=== PATIENT | female | born 1950 | race Hispanic/Latino ===

== ENCOUNTER 2023-03-27 21:36 | Inpatient (IN) | payer OTHER ==
[~2023-03-27 21:36] MED LIST: Iopamidol-370 76% 500 ML MDV (1 ML CHARGE) ONE
[2023-03-27 22:37] LABS: #Monocytes 0.6 thou/uL (0.11-0.59); #Neutrophils 8.8 thou/uL (1.40-6.50); %Basophils 0.2 % (0.0-1.0); %Eosinophils 0.1 % (0.0-10.0); %Lymphocytes 18.6 % (21.0-51.0); %Monocytes 5.4 % (0.0-10.0); %Neutrophils 75.5 % (42.0-75.0); Hematocrit 39.5 % (36.0-47.0); Hemoglobin 13.4 g/dL (12.0-16.0); Mean Corpuscular HGB CONC 33.9 g/dL (32.0-36.0); Mean Corpuscular Hemoglobin 32.1 pg (27.0-31.0); Mean Corpuscular Volume 94.5 fl (78.0-98.0); Mean Platelet Volume 10.3 fL (7.4-10.4); Platelet Count 264 10x3/uL (130-400); RBC Distribution Width 12.5 % (11.5-14.5); Red Blood Cell (RBC) Count 4.18 mill/uL (4.20-5.40); White Blood Cell (WBC) Count 11.7 10x3/uL (4.8-10.8)
[2023-03-27 22:41] LABS: INR-International Normal Ratio 0.9; PTT 25.1 sec (22.9-36.1)
[2023-03-27 22:48] LABS: Bacteria/HPF None Seen HPF (None Seen); Bilirubin Negative (Negative); Blood, Urine Negative (Negative); CAUTI Indications for Culture Alt mental st,lethar; Clarity Clear (Clear); Glucose, Urine (Dipstick) Normal (Negative); Ketone, Urine Negative (Negative); Leukocyte Negative Leu/uL (Negative); Nitrite Negative (Negative); Protein, Urine (Dipstick) Negative (Neg-Trace); RBC/HPF 0-3 HPF (0-3); Squamous Epithelial None Seen HPF (0-3); Urobilinogen Normal mg/dL (Less than 2); WBC/HPF 0-3 HPF (0-3)
[2023-03-27 22:51] LABS: Urine Culture Reflex No No
[2023-03-27 22:53] LABS: ALT (SGPT) 32 U/L (8-55); AST (SGOT) 60 U/L (5-34); Albumin 3.8 g/dL (3.4-4.8); Alkaline Phosphatase 79 U/L (40-110); Anion Gap 17 mmol/L (10-20); BUN (Urea Nitrogen) 33 mg/dL (9.8-20.1); Bilirubin, Total 0.2 mg/dL (0.2-1.2); CK (CPK) 2658 U/L (29-168); Calc. Creatinine Clearance 0 mL/min (70-130); Calcium 9.4 mg/dL (7.8-10.44); Carbon Dioxide 19 mmol/L (23-31); Chloride 98 mmol/L (98-107); Estimated GFR 80; Globulin 2.9 g/dL (2.4-3.5); Glucose 159 mg/dL (83-110); Potassium 3.1 mmol/L (3.5-5.1); Protein, Total 6.7 g/dL (5.8-8.1); Sodium 131 mmol/L (136-145)
[2023-03-27 22:55] LABS: Troponin I 0.013 ng/mL (< 0.028)
[2023-03-27 22:56] LABS: Amphetamine Not Detected (NotDetected); Barbiturates Screen Not Detected (NotDetected); Benzodiazepine Screen Detected (NotDetected); Cocaine Metabolite Screen Not Detected (NotDetected); Methadone Not Detected (NotDetected); Methamphetamine Not Detected (NotDetected); Opiate Screen Not Detected (NotDetected); Oxycodone Screen Not Detected (NotDetected); Phencyclidine (PCP) Not Detected (NotDetected); THC/Cannabinoid Screen Not Detected (NotDetected); Tricyclic Screen Not Detected (NotDetected)
[2023-03-27] MEDS ORDERED: Dextrose 5% in Water 1,000 ML IV PRN (23:28)
[2023-03-27] MEDS ORDERED: Ondansetron ODT 4 MG TAB PO PRN (23:28)
[2023-03-27] MEDS ORDERED: HumaLOG 300 UNITS/3 ML VIAL SC PRN ×2 (23:28)
[2023-03-27] MEDS ORDERED: hydrALAZINE 20 MG/ML VIAL SLOW IVP PRN (23:28)
[2023-03-27] MEDS ORDERED: Glucagon 1 MG/ML KIT IM PRN (23:28)
[2023-03-27] MEDS ORDERED: Acetaminophen 325 MG TAB PO PRN (23:28)
[2023-03-27] MEDS ORDERED: Dextrose 50% Abboject 50 ML SYRINGE SLOW IVP PRN (23:28)
[2023-03-27] MEDS ORDERED: Ondansetron PF 4 MG/2 ML Vial IVP PRN (23:28)
[2023-03-27] MEDS ORDERED: Acetaminophen 650 MG Suppository PR PRN (23:28)
[2023-03-28 02:44] VITALS: BMI 21.7
[2023-03-28 04:41] LABS: #Monocytes 0.9 thou/uL (0.11-0.59); #Neutrophils 10.8 thou/uL (1.40-6.50); %Basophils 0.2 % (0.0-1.0); %Eosinophils 0.1 % (0.0-10.0); %Monocytes 5.8 % (0.0-10.0); %Neutrophils 70.6 % (42.0-75.0); Hematocrit 38.8 % (36.0-47.0); Hemoglobin 13.1 g/dL (12.0-16.0); Mean Corpuscular HGB CONC 33.8 g/dL (32.0-36.0); Mean Corpuscular Hemoglobin 31.7 pg (27.0-31.0); Mean Corpuscular Volume 93.9 fl (78.0-98.0); Mean Platelet Volume 10.2 fL (7.4-10.4); Platelet Count 274 10x3/uL (130-400); RBC Distribution Width 12.5 % (11.5-14.5); Red Blood Cell (RBC) Count 4.13 mill/uL (4.20-5.40); White Blood Cell (WBC) Count 15.2 10x3/uL (4.8-10.8)
[2023-03-28 04:57] LABS: Hemoglobin A1c 5.1 % (4.0-6.0)
[2023-03-28 05:13] LABS: Anion Gap 13 mmol/L (10-20); BUN (Urea Nitrogen) 22 mg/dL (9.8-20.1); Calc. Creatinine Clearance 62 mL/min (70-130); Calcium 9.1 mg/dL (7.8-10.44); Carbon Dioxide 23 mmol/L (23-31); Cardiac Risk 2.3 (Less than 4.5); Chloride 98 mmol/L (98-107); Cholesterol 149 mg/dl (< 200 Desired); Estimated GFR 92; Glucose 108 mg/dL (83-110); HDL Cholesterol 65 mg/dL (>60 Neg Risk); LDL Cholesterol, Calculated 70 mg/dL; Potassium 3.3 mmol/L (3.5-5.1); Sodium 131 mmol/L (136-145); Triglycerides 68 mg/dL (Less than 150)
[2023-03-28] MEDS ORDERED: Electrolyte Replacement Protocol 1 EACH FS SCH (07:00)
[2023-03-28] MEDS ORDERED: Potassium Chloride 20 MEQ TAB PO SCH (08:00)
[2023-03-28 08:07] LABS: Magnesium 1.7 mg/dL (1.6-2.6)
[2023-03-28] MEDS: Aspirin 81 mg Enteric Coated Tablet PO SCH (08:26)
[2023-03-28] MEDS: Sodium Chloride 0.9% 1,000 ML IV SCH ×2 (08:26→17:46)
[2023-03-28] MEDS ORDERED: Magnesium 2 GM/50 ML(in water) 2 GM in Premix Bag 1 BAG IVPB SCH (09:00)
[2023-03-28] MEDS ORDERED: Lorazepam 2 MG/ML VIAL ONE (13:58)
[2023-03-28 14:39] LABS: PTT 29.3 sec (22.9-36.1); Prothrombin Time 13.6 sec (12.0-14.7)
[2023-03-28 14:50] LABS: #Monocytes 0.8 thou/uL (0.11-0.59); #Neutrophils 7.7 thou/uL (1.40-6.50); %Basophils 0.3 % (0.0-1.0); %Eosinophils 0.2 % (0.0-10.0); %Lymphocytes 27.4 % (21.0-51.0); %Monocytes 6.8 % (0.0-10.0); Hematocrit 35.7 % (36.0-47.0); Hemoglobin 12.2 g/dL (12.0-16.0); Mean Corpuscular HGB CONC 34.2 g/dL (32.0-36.0); Mean Corpuscular Hemoglobin 32.1 pg (27.0-31.0); Mean Corpuscular Volume 93.9 fl (78.0-98.0); Mean Platelet Volume 10.3 fL (7.4-10.4); Platelet Count 270 10x3/uL (130-400); RBC Distribution Width 12.6 % (11.5-14.5); White Blood Cell (WBC) Count 11.8 10x3/uL (4.8-10.8)
[2023-03-28 14:51] LABS: Anion Gap 24 mmol/L (10-20); BUN (Urea Nitrogen) 14 mg/dL (9.8-20.1); Calc. Creatinine Clearance 61 mL/min (70-130); Calcium 8.2 mg/dL (7.8-10.44); Carbon Dioxide 11 mmol/L (23-31); Chloride 101 mmol/L (98-107); Estimated GFR 91; Glucose 121 mg/dL (83-110); Potassium 3.8 mmol/L (3.5-5.1); Sodium 132 mmol/L (136-145)
[2023-03-28] MEDS: levETIRAcetam 500 MG/5 ML VIAL SLOW IVP SCH (20:07)
[2023-03-28] MEDS ORDERED: levETIRAcetam 500 MG TAB PO SCH (21:00)
[2023-03-29] MEDS: Sodium Chloride 0.9% 1,000 ML IV SCH ×2 (02:00→09:54)
[2023-03-29] MEDS: levETIRAcetam 500 MG/5 ML VIAL SLOW IVP SCH (08:25)
[2023-03-29] MEDS: Aspirin 81 mg Enteric Coated Tablet PO SCH ×2 (08:25→09:22)
[2023-03-29] MEDS ORDERED: DULoxetine 30 MG CAP PO SCH (12:56)
[2023-03-29] MEDS: levETIRAcetam 500 MG TAB PO SCH (20:46)
[2023-03-29] MEDS: ALPRAZolam 0.5 MG TAB PO SCH (20:46)
[2023-03-30 04:56] LABS: #Monocytes 0.9 thou/uL (0.11-0.59); #Neutrophils 8.1 thou/uL (1.40-6.50); %Basophils 0.2 % (0.0-1.0); %Eosinophils 0.2 % (0.0-10.0); %Lymphocytes 26.9 % (21.0-51.0); %Monocytes 7.6 % (0.0-10.0); %Neutrophils 64.8 % (42.0-75.0); Hematocrit 37.7 % (36.0-47.0); Hemoglobin 13.2 g/dL (12.0-16.0); Mean Corpuscular Hemoglobin 32.4 pg (27.0-31.0); Mean Corpuscular Volume 92.6 fl (78.0-98.0); Platelet Count 289 10x3/uL (130-400); RBC Distribution Width 12.1 % (11.5-14.5); Red Blood Cell (RBC) Count 4.07 mill/uL (4.20-5.40); White Blood Cell (WBC) Count 12.4 10x3/uL (4.8-10.8)
[2023-03-30 05:19] LABS: Anion Gap 12 mmol/L (10-20); BUN (Urea Nitrogen) 9 mg/dL (9.8-20.1); CK (CPK) 3909 U/L (29-168); Calc. Creatinine Clearance 72 mL/min (70-130); Calcium 8.9 mg/dL (7.8-10.44); Carbon Dioxide 23 mmol/L (23-31); Chloride 101 mmol/L (98-107); Estimated GFR 95; Glucose 108 mg/dL (83-110); Potassium 3.4 mmol/L (3.5-5.1); Sodium 133 mmol/L (136-145)
[2023-03-30] MEDS ORDERED: Potassium Chloride 20 MEQ TAB PO SCH (08:00)
[2023-03-30] MEDS ORDERED: Ziprasidone 20 MG CAP PO SCH (08:42)
[2023-03-30] MEDS ORDERED: Ziprasidone 20 MG VIAL IM SCH ×2 (09:30→13:30)
[2023-03-30] MEDS ORDERED: Sterile Water 10 ML ONE ×2 (09:33→13:41)
[2023-03-30] MEDS: Sodium Chloride 0.9% 1,000 ML IV SCH ×2 (10:56→17:55)
[2023-03-30] MEDS: Aspirin 81 mg Enteric Coated Tablet PO SCH (10:57)
[2023-03-30] MEDS: ALPRAZolam 0.5 MG TAB PO SCH ×2 (10:57→20:09)
[2023-03-30] MEDS: DULoxetine 30 MG CAP PO SCH (10:58)
[2023-03-30] MEDS: levETIRAcetam 500 MG TAB PO SCH (11:10)
[2023-03-30] MEDS: Divalproex Sodium 250 MG ER.TAB PO SCH (14:28)
[2023-03-30] MEDS ORDERED: traZODone HCl 50 MG TAB PO PRN (16:06)
[2023-03-30] MEDS ORDERED: levETIRAcetam 500 MG/5 ML VIAL SLOW IVP SCH (21:00)
[2023-03-30] MEDS ORDERED: levETIRAcetam 500 MG TAB PO SCH (21:00)
[2023-03-30] MEDS ORDERED: Haloperidol Lactate 5 MG/ML VIAL IM SCH (21:30)
[2023-03-30] MEDS ORDERED: QUEtiapine 25 MG TAB PO SCH (23:00)
[2023-03-31] MEDS ORDERED: Lorazepam 2 MG/ML VIAL ONE (03:55)
[2023-03-31] MEDS ORDERED: levETIRAcetam 500 MG/5 ML VIAL SLOW IVP SCH (04:15)
[2023-03-31 04:19] LABS: #Eosinphils 0.1 thou/uL (0.0-0.7); #Monocytes 1.3 thou/uL (0.11-0.59); #Neutrophils 9.1 thou/uL (1.40-6.50); %Basophils 0.2 % (0.0-1.0); %Eosinophils 0.3 % (0.0-10.0); %Lymphocytes 33.8 % (21.0-51.0); %Neutrophils 57.2 % (42.0-75.0); Hematocrit 39.9 % (36.0-47.0); Hemoglobin 13.5 g/dL (12.0-16.0); Mean Corpuscular HGB CONC 33.8 g/dL (32.0-36.0); Mean Corpuscular Hemoglobin 31.9 pg (27.0-31.0); Mean Corpuscular Volume 94.3 fl (78.0-98.0); Mean Platelet Volume 10.5 fL (7.4-10.4); Platelet Count 334 10x3/uL (130-400); RBC Distribution Width 12.3 % (11.5-14.5); Red Blood Cell (RBC) Count 4.23 mill/uL (4.20-5.40); White Blood Cell (WBC) Count 15.9 10x3/uL (4.8-10.8)
[2023-03-31] MEDS: Sodium Chloride 0.9% 1,000 ML IV SCH ×2 (04:26→14:21)
[2023-03-31 08:28] LABS: Anion Gap 25 mmol/L (10-20); BUN (Urea Nitrogen) 11 mg/dL (9.8-20.1); CK (CPK) 2612 U/L (29-168); Calc. Creatinine Clearance 57 mL/min (70-130); Calcium 9.3 mg/dL (7.8-10.44); Carbon Dioxide 16 mmol/L (23-31); Chloride 101 mmol/L (98-107); Estimated GFR 85; Glucose 176 mg/dL (83-110); Potassium 3.3 mmol/L (3.5-5.1); Sodium 139 mmol/L (136-145)
[2023-03-31] MEDS ORDERED: Potassium Chloride 20 MEQ TAB PO SCH (09:00)
[2023-03-31] MEDS: Aspirin 81 mg Enteric Coated Tablet PO SCH (09:04)
[2023-03-31] MEDS: DULoxetine 30 MG CAP PO SCH (09:04)
[2023-03-31] MEDS: Divalproex Sodium 250 MG ER.TAB PO SCH ×2 (09:04→20:30)
[2023-03-31] MEDS: levETIRAcetam 500 MG/5 ML VIAL SLOW IVP SCH ×2 (09:04→20:06)
[2023-03-31] MEDS: ALPRAZolam 0.5 MG TAB PO SCH ×2 (09:08→20:30)
[2023-03-31] MEDS: Lorazepam 2 MG/ML VIAL SLOW IVP PRN (20:08)
[2023-03-31] MEDS: QUEtiapine 25 MG TAB PO SCH (20:30)
[2023-04-01] MEDS: Sodium Chloride 0.9% 1,000 ML IV SCH ×3 (06:05→18:22)
[2023-04-01] MEDS: levETIRAcetam 500 MG/5 ML VIAL SLOW IVP SCH (08:01)
[2023-04-01] MEDS: Lorazepam 2 MG/ML VIAL SLOW IVP PRN ×2 (08:31→21:01)
[2023-04-01] MEDS ORDERED: Lorazepam 2 MG/ML VIAL SLOW IVP SCH (10:45)
[2023-04-01] MEDS ORDERED: Valproate Sodium 1,000 MG in Sodium Chloride 0.9% 100 ML IVPB SCH (11:00)
[2023-04-01] MEDS: ALPRAZolam 0.5 MG TAB PO SCH ×2 (11:10→21:21)
[2023-04-01] MEDS: Divalproex Sodium 250 MG ER.TAB PO SCH (11:11)
[2023-04-01] MEDS: DULoxetine 30 MG CAP PO SCH (11:11)
[2023-04-01] MEDS: Aspirin 81 mg Enteric Coated Tablet PO SCH (11:11)
[2023-04-01] MEDS: Valproate Sodium 750 MG in Sodium Chloride 0.9% 100 ML IVPB SCH (21:01)
[2023-04-01] MEDS: QUEtiapine 25 MG TAB PO SCH (21:21)
[2023-04-02] MEDS ORDERED: Labetalol HCl 100 MG/20 ML VIAL SLOW IVP SCH (04:45)
[2023-04-02] MEDS: Sodium Chloride 0.9% 1,000 ML IV SCH ×2 (04:51→19:20)
[2023-04-02 05:14] LABS: #Eosinphils 0.1 thou/uL (0.0-0.7); #Monocytes 0.6 thou/uL (0.11-0.59); #Neutrophils 5.5 thou/uL (1.40-6.50); %Basophils 0.4 % (0.0-1.0); %Eosinophils 0.6 % (0.0-10.0); %Lymphocytes 37.9 % (21.0-51.0); %Monocytes 6.2 % (0.0-10.0); %Neutrophils 54.5 % (42.0-75.0); Hematocrit 36.3 % (36.0-47.0); Hemoglobin 12.4 g/dL (12.0-16.0); Mean Corpuscular HGB CONC 34.2 g/dL (32.0-36.0); Mean Corpuscular Hemoglobin 31.3 pg (27.0-31.0); Mean Corpuscular Volume 91.7 fl (78.0-98.0); Mean Platelet Volume 10.2 fL (7.4-10.4); Platelet Count 313 10x3/uL (130-400); RBC Distribution Width 12.5 % (11.5-14.5); Red Blood Cell (RBC) Count 3.96 mill/uL (4.20-5.40); White Blood Cell (WBC) Count 10.1 10x3/uL (4.8-10.8)
[2023-04-02 05:41] LABS: ALT (SGPT) 38 U/L (8-55); AST (SGOT) 33 U/L (5-34); Albumin 3.1 g/dL (3.4-4.8); Alkaline Phosphatase 50 U/L (40-110); BUN (Urea Nitrogen) 10 mg/dL (9.8-20.1); Bilirubin, Total 0.5 mg/dL (0.2-1.2); Calc. Creatinine Clearance 70 mL/min (70-130); Calcium 8.4 mg/dL (7.8-10.44); Carbon Dioxide 24 mmol/L (23-31); Chloride 104 mmol/L (98-107); Estimated GFR 94; Globulin 2.4 g/dL (2.4-3.5); Glucose 85 mg/dL (83-110); Potassium 3.1 mmol/L (3.5-5.1); Protein, Total 5.5 g/dL (5.8-8.1); Sodium 139 mmol/L (136-145)
[2023-04-02] MEDS: Lorazepam 2 MG/ML VIAL SLOW IVP PRN (05:52)
[2023-04-02 05:57] LABS: Anion Gap 14 mmol/L (10-20)
[2023-04-02] MEDS ORDERED: Potassium Chloride 20 MEQ TAB PO SCH (08:00)
[2023-04-02] MEDS: ALPRAZolam 0.5 MG TAB PO SCH ×2 (09:18→23:41)
[2023-04-02] MEDS: Aspirin 81 mg Enteric Coated Tablet PO SCH (09:18)
[2023-04-02] MEDS: DULoxetine 30 MG CAP PO SCH (09:18)
[2023-04-02] MEDS: Potassium Chloride 20 MEQ in Premix Bag 1 BAG IVPB SCH ×2 (10:58→14:17)
[2023-04-02] MEDS: Valproate Sodium 750 MG in Sodium Chloride 0.9% 100 ML IVPB SCH ×2 (10:58→20:32)
[2023-04-02] MEDS ORDERED: Lorazepam 2 MG/ML VIAL SLOW IVP SCH (13:15)
[2023-04-02] MEDS ORDERED: Valproate Sodium 750 MG in Sodium Chloride 0.9% 100 ML IVPB SCH ×2 (13:30→15:00)
[2023-04-02] MEDS: Lacosamide 200 MG in Sodium Chloride 0.9% 50 ML IVPB SCH (14:20)
[2023-04-02] MEDS: QUEtiapine 25 MG TAB PO SCH (23:41)
[2023-04-03] MEDS: Lacosamide 200 MG in Sodium Chloride 0.9% 50 ML IVPB SCH (02:42)
[2023-04-03] MEDS: Sodium Chloride 0.9% 1,000 ML IV SCH (02:58)
[2023-04-03 04:17] LABS: #Eosinphils 0.1 thou/uL (0.0-0.7); #Monocytes 0.6 thou/uL (0.11-0.59); #Neutrophils 3.9 thou/uL (1.40-6.50); %Basophils 0.5 % (0.0-1.0); %Lymphocytes 46.1 % (21.0-51.0); %Monocytes 6.7 % (0.0-10.0); %Neutrophils 45.2 % (42.0-75.0); Hemoglobin 13.4 g/dL (12.0-16.0); Mean Corpuscular HGB CONC 34.4 g/dL (32.0-36.0); Mean Corpuscular Hemoglobin 31.5 pg (27.0-31.0); Mean Corpuscular Volume 91.5 fl (78.0-98.0); Mean Platelet Volume 10.1 fL (7.4-10.4); Platelet Count 341 10x3/uL (130-400); RBC Distribution Width 12.6 % (11.5-14.5); Red Blood Cell (RBC) Count 4.26 mill/uL (4.20-5.40); White Blood Cell (WBC) Count 8.7 10x3/uL (4.8-10.8)
[2023-04-03 04:50] LABS: Anion Gap 14 mmol/L (10-20); BUN (Urea Nitrogen) 14 mg/dL (9.8-20.1); CK (CPK) 285 U/L (29-168); Calc. Creatinine Clearance 67 mL/min (70-130); Carbon Dioxide 26 mmol/L (23-31); Chloride 102 mmol/L (98-107); Estimated GFR 93; Glucose 92 mg/dL (83-110); Potassium 3.9 mmol/L (3.5-5.1); Sodium 138 mmol/L (136-145)
[2023-04-03 08:03] VITALS: BP 179/91; TEMP 97.3
[2023-04-05 12:11] LABS: HSV-1 IgG Type Specific >62.20 index (0.00-0.90); HSV-2 IgG Type Specific Less than 0.91 index (0.00-0.90)
== END 2023-04-03 09:30 | disposition short-term general hospital (02) | DRG 100 ==
LOC: ERS 21:36 → ERHOLD 22:40 → 2SE 03-28 01:13
PROVIDERS: ADMIT Student in an Organized Health Care Education/Training Program; ATTEND Internal Medicine
DX: G40.909 Epilepsy, unspecified, not intractable, without status epilepticus (principal); G93.41 Metabolic encephalopathy; E87.1 Hypo-osmolality and hyponatremia; M62.82 Rhabdomyolysis; I10 Essential (primary) hypertension; E11.9 Type 2 diabetes mellitus without complications; E87.6 Hypokalemia; R47.1 Dysarthria and anarthria; T42.6X5A Adverse effect of other antiepileptic and sedative-hypnotic drugs, initial encounter; I65.21 Occlusion and stenosis of right carotid artery; E86.0 Dehydration; F41.9 Anxiety disorder, unspecified; Z79.899 Other long term (current) drug therapy; Z90.710 Acquired absence of both cervix and uterus
CPT/HCPCS: 36415; 36416; 51701; 70450; 70496; 70498; 70551; 71045; 80048; 80053; 80061; 80164; 80306; 81001; 82550; 83036; 83735; 84484; 85025; 85610; 85730; 86695; 86696; 87040; 93005; 93306; 94640; 95711; 95816; 95819; 95957; 96360; C9254; J1630; J1953; J2060; J3475; J3480; J3486; J3490; J7050; Q9967